=== PATIENT | female | born 1975 | race Hispanic/Latino ===

== ENCOUNTER 2016-08-10 13:53 | Observation (INO) | payer BC ==
[2016-08-10 13:53] VITALS: BMI 52.9
[2016-08-10] MEDS ORDERED: Sodium Chloride 0.9% 1,000 ML IV STA ×2 (14:27→17:41)
[2016-08-10 14:40] LABS: BASO # 0.1 K/uL (0.0-0.2); BASO % 0.7 % (0.0-2.0); EOS # 0.2 K/uL (0.0-0.7); EOS % 1.5 % (0.0-4.0); HEMATOCRIT 32.6 % (34.0-47.0); LYMPH # 5.9 K/uL (1.0-4.3); MEAN CORPUSCULAR HEMOGLOBIN 21.9 pg (27.0-31.0); MEAN CORPUSCULAR HGB CONC 30.8 g/dL (33.0-37.0); MEAN PLATELET VOLUME 7.5 fl (7.2-11.7); MONO # 1.5 K/uL (0.0-0.8); MONO % 8.8 % (0.0-10.0); NEUT # 9.1 K/uL (1.8-7.0); RED CELL DISTRIBUTION WIDTH 18.6 % (11.5-14.5); WHITE BLOOD COUNT 16.9 K/uL (4.8-10.8)
--- NOTE | 2016-08-10 14:52 | ED PDOC ---
HPI: General Adult Time Seen by Provider: 08/10/16 14:06 Chief Complaint (Nursing): Dizziness/Lightheaded Chief Complaint (Provider): Dizziness/Lightheaded History Per: Patient History/Exam Limitations: no limitations Onset/Duration Of Symptoms: Hrs Have you had recent travel within the past 21 days to any of the following countries: [place], [place], [place] or [place]?: No Current Symptoms Are (Timing): Still Present Severity: Moderate Additional Complaint(s): Patient is a 40 year old female with a history of migraines, presents to ED for sudden onset with double vision, nausea and vomiting immediately after stepping outside. Patient reports similar symptoms in the past with spontaneous resolution. Denies headache, head injury, numbness, weakness or tingling. NIHSS Stroke Scale - Date/Time Evaluation Performed Date Performed: 08/10/16 When Was NIHSS Performed: Baseline - How Severe is the Stroke Level of Consciousness: 0=Alert LOC to Questions: 0=Both comments correct LOC to commands: 0=Obeys both correctly Best Gaze: 0=Normal Visual: 0=No visual loss Facial: 0=Normal Motor Arm - Left: 0=No drift Motor Arm - Right: 0=No drift Motor Leg - Left: 0=No drift Motor Leg - Right: 0=No drift Limb Ataxia: 0=Absent Sensory: 0=Normal Best Language: 0=No aphasia Dysarthia: 0=Normal articulation Extinction & Inattention (Neglect): 0=Normal, no object Score: 0 rTPA Inclusion/Exclusion - Refusal of Treatment Patient Refused Treatment: No - Inclusion Criteria for Altepase Patient is 18 years or Older: Yes The Clinical Diagnosis of Ischemic Stroke That is Causing a Potentially Disabling Neurological Deficit: No Time of Onset is Well Established to be Less Than 270 Minute Before Treatment Would Begin: No Risk/Benefit Discussed With Patient/Family Member Present: No Past Medical History Reviewed: Historical Data, Nursing Documentation, Vital Signs Vital Signs: Last Vital Signs Temp 98.5 F 08/11/16 07:59 Pulse 96 H 08/11/16 07:59 Resp 20 08/11/16 07:59 BP 112/72 08/11/16 07:59 Pulse Ox 97 08/11/16 07:59 - Medical History PMH: Anxiety, Bipolar Disorder, Bronchitis, Depression, HTN, Migraine Denies: HIV, Chronic Kidney Disease - Surgical History Surgical History: No Surg Hx - Family History Family History: States: No Known Family Hx - Living Arrangements Living Arrangements: With Family - Home Medications Home Medications: Ambulatory Orders Medication Instructions Recorded Famotidine [Pepcid] 20 mg PO BID #0 tab 10/17/14 ALPRAZolam [Xanax] 1 tab PO TID PRN 08/10/16 ARIPiprazole [Abilify] 5 mg PO DAILY 08/10/16 Lamotrigine [Lamictal Xr] 300 mg PO BID 08/10/16 QUEtiapine [SEROquel] 200 mg PO HS 08/10/16 Aspirin [Ecotrin] 81 mg PO DAILY #30 tabec 08/11/16 Magnesium Oxide [Magnesium] 400 mg PO BID #60 capsule 08/11/16 Meclizine [Antivert] 25 mg PO Q6 PRN #15 tab 08/11/16 - Allergies Allergies/Adverse Reactions: Allergies Allergy/AdvReac Type Severity Reaction Status Date / Time metoclopramide HCl Allergy RASH Verified 07/16/15 15:17 [From [facility]] Review of Systems ROS Statement: Except As Marked, All Systems Reviewed And Found Negative Constitutional: Negative for: Weakness Eyes: Positive for: Vision Change Cardiovascular: Negative for: Chest Pain, Palpitations Respiratory: Negative for: Shortness of Breath Gastrointestinal: Positive for: Nausea, Vomiting. Negative for: Abdominal Pain Musculoskeletal: Negative for: Neck Pain Skin: Negative for: Rash Neurological: Negative for: Weakness, Numbness, Headache, Dizziness Physical Exam - Reviewed Nursing Documentation Reviewed: Yes Vital Signs Reviewed: Yes - Physical Exam Appears: Positive for: In Acute Distress (moderate gastrointestinal distress ) Head Exam: Positive for: ATRAUMATIC, NORMAL INSPECTION Skin: Positive for: Normal Color, Warm Eye Exam: Positive for: Normal appearance ((+) double vision with bilateral open eyes ), EOMI, PERRL Neck: Positive for: Normal, Painless ROM Cardiovascular/Chest: Positive for: Regular Rate, Rhythm. Negative for: Murmur Respiratory: Positive for: Normal Breath Sounds. Negative for: Respiratory Distress Gastrointestinal/Abdominal: Positive for: Normal Exam (Actively vomiting ). Negative for: Tenderness, Distended Back: Positive for: Normal Inspection Extremity: Positive for: Normal ROM. Negative for: Pedal Edema, Calf Tenderness Neurologic/Psych: Positive for: Alert, Oriented - Laboratory Results Result Diagrams: 08/11/16 05:45 08/11/16 05:45 - ECG O2 Sat by Pulse Oximetry: 100 (RA) Pulse Ox Interpretation: Normal - CT Scan/US CT head Other Rad Studies (CT/US): Radiology Report Reviewed (No evidence of acute intracranial hemorrhage territorial infarct mass effect or midline shift. If clinically warranted further assessment by MRI may be obtained.) - Physician Consult Information Time Consulting Physican Contacted: 17:00 Physician Contacted: Jose Clark Outcome Of Conversation: Recommends, Decadron 10 mg IV, Depakote 500 mg IV and MgSO4 2 g IV, Zofran prn. Medical Decision Making Medical Decision Making: Time: 1420 Initial impression: Migraine Initial plan: -- CT-head -- CMP -- Urine preg -- Urine dip -- CBC -- NSF and Zofran Scribe Attestation: Documented by Hortencia Patrick acting as a scribe for Ana Cristina Bautista MD MD Scribe Attestation: All medical record entries made by the Scribe were at my direction and personally dictated by me. I have reviewed the chart and agree that the record accurately reflects my personal performance of the history, physical exam, medical decision making, and the department course for this patient. I have also personally directed, reviewed, and agree with the discharge instructions and disposition. Disposition - Clinical Impression Clinical Impression: Diplopia, Migraine - Patient ED Disposition Is Patient to be Admitted: Yes - Disposition Disposition Time: 17:42 Condition: STABLE - Pt Status Changed To: Hospital Disposition Of: Inpatient - Admit Certification Admit to Inpatient:: After my assessment, the patient will require hospitalization for at least two midnights. This is because of the severity of symptoms shown, intensity of services needed, and/or the medical risk in this patient being treated as an outpatient. - POA Present On Arrival: None
[2016-08-10 14:55] LABS: ALB/GLOB RATIO 1.3 (1.0-2.1); ALKALINE PHOSPHATASE 91 U/L (38-126); ALT/SGPT 27 U/L (9-52); AST/SGOT 26 U/L (14-36); BILIRUBIN,TOTAL 0.5 mg/dl (0.2-1.3); BLOOD UREA NITROGEN 11 mg/dl (7-17); CALCIUM 9.5 mg/dL (8.4-10.2); CARBON DIOXIDE 24 mmol/L (22-30); CHLORIDE 100 mmol/L (98-107); GFR AFRICAN-AMERICAN > 60; GLUCOSE,RANDOM 153 mg/dL (65-105); POTASSIUM 3.9 MMOL/L (3.6-5.0); SODIUM 141 mmol/l (132-148); TOTAL PROTEIN 8.2 G/DL (6.3-8.2)
--- NOTE | 2016-08-10 15:34 | CT ---
PROCEDURE: CT HEAD WITHOUT CONTRAST. HISTORY: Diplopia COMPARISON: None available. TECHNIQUE: Axial computed tomography images were obtained through the head/brain without intravenous contrast. Radiation dose: Total exam DLP = 861.11 mGy-cm. FINDINGS: HEMORRHAGE: No intracranial hemorrhage. BRAIN: No mass effect or edema. No atrophy or chronic microvascular ischemic changes. VENTRICLES: Unremarkable. No hydrocephalus. CALVARIUM: Unremarkable. PARANASAL SINUSES: Unremarkable as visualized. No significant inflammatory changes. MASTOID AIR CELLS: Unremarkable as visualized. No inflammatory changes. OTHER FINDINGS: None. IMPRESSION: No evidence of acute intracranial hemorrhage territorial infarct mass effect or midline shift. If clinically warranted further assessment by MRI may be obtained.
[2016-08-10] MEDS ORDERED: Dexamethasone 10 MG in Sodium Chloride 0.9% 50 ML IV STA (17:02)
[2016-08-10] MEDS ORDERED: Valproate 500 MG in Sodium Chloride 0.9% 100 ML IVPB STA (17:10)
[2016-08-10 18:15] LABS: IRON < 10 ug/dL (37-170)
--- NOTE | 2016-08-10 20:09 | CP.PCM.HP ---
<Deshawn Anglin - Last Filed: 08/10/16 21:31> History of Present Illness - History of Present Illness History of Present Illness: 40 yo F w/ PMHx of Migraine, Gastric Sleeve Sx, Bipolar presented to ED with sudden onset of double vision and generalized weakness. Patient states has been having feelings of lightheadedness x 2 wks, that she attributes to having only one contact lens in place. Patient states also she would feel better after she ate. However, today was different and much worse. Patient states approx 2 hrs after waking up this morning (ate an orange and a banana) she began to have similar symptoms of dizziness/double vision/weakness. Patient states she went outside to get fresh air, sat on a bench and felt that she couldn't get up. Patient then states the next thing she remembers was attempting to go to the bathroom to urinate in the ED. Patient states employees that were with her described her as "out of it/unconscious" though no fall. Patient also remembers having trouble speaking during this episode. Denies urinary/bowel incontinence, headache, fever, recent illness, urinary symptoms, n/v/d/c/brbpr/m, or surrounding people with similar symptoms. PMD: Dr. Hermosillo PMHx: Migraine, Gastric Sleeve Sx, Bipolar Meds: Abilify 5mg qd, Seroquel 200mg HS, Xanax 1mg TID PRN, Lamictial XL 300mg BID Allergies: Reglan (dystonic rxn) Surgeries: Gastric Sleeve Sx (12/2014) Family hx: Mother HTN, Father alive and healthy Social hx: Lives in basement of parents home. Denies tobacco use. 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 EtOh occasionally, last drink 2 months ago. 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 ED Course: Vitals stable/unremarkable Labs remarkable for leukocytosis, thrombocytosis, microcytic anemia Urine preg/dip - negative/unremarkable IV Hydration CT head - No evidence of acute intracranial hemorrhage territorial infarct mass effect or midline shift. If clinically warranted further assessment by MRI may be obtained. Neurology consulted, Dr. Clark, Recommended Decadron 10 mg IV, Depakote 500 mg IV and MgSO4 2 g IV, Zofran prn. MRI ordered. 5 episodes of vomiting in ED as per patient, none prior to ED arrival Present on Admission - Present on Admission Any Indicators Present on Admission: No Review of Systems - Review of Systems All systems: reviewed and no additional remarkable complaints except (mentioned in HPI) Past Patient History - Past Medical History & Family History Past Medical History?: Yes - Past Social History Smoking Status: Never Smoked - CARDIAC Hx Hypertension: Yes - PULMONARY Hx Bronchitis: Yes - NEUROLOGICAL Hx Migraine: Yes - HEENT Hx HEENT Problems: No - RENAL Hx Chronic Kidney Disease: No - ENDOCRINE/METABOLIC Hx Endocrine Disorders: No - HEMATOLOGICAL/ONCOLOGICAL Hx Human Immunodeficiency Virus (HIV): No - INTEGUMENTARY Hx Cellulitis: Yes - MUSCULOSKELETAL/RHEUMATOLOGICAL Hx Falls: No - GASTROINTESTINAL Other/Comment: polyps - GENITOURINARY/GYNECOLOGICAL Hx Genitourinary Disorders: No - PSYCHIATRIC Hx Anxiety: Yes Hx Bipolar Disorder: Yes Hx Depression: Yes - SURGICAL HISTORY Other/Comment: rhinoplasty. "Fissure" - ANESTHESIA Hx Anesthesia: Yes Hx Anesthesia Reactions: Yes Hx Malignant Hyperthermia: No Meds Allergies/Adverse Reactions: Allergies Allergy/AdvReac Type Severity Reaction Status Date / Time metoclopramide HCl Allergy RASH Verified 07/16/15 15:17 [From Reglan] Physical Exam - Constitutional Appears: Non-toxic, No Acute Distress Additional comments: weak - Head Exam Head Exam: ATRAUMATIC, NORMAL INSPECTION, NORMOCEPHALIC - Eye Exam Eye Exam: EOMI Pupil Exam: PERRL Additional comments: bilateral ptosis - ENT Exam ENT Exam: Mucous Membranes Moist, Normal Exam Additional comments: unable to fully protrude tongue though no deviation appreciated - Neck Exam Neck exam: Positive for: Full Rom, Normal Inspection. Negative for: Meningismus , Tenderness - Respiratory Exam Respiratory Exam: Clear to Auscultation Bilateral, NORMAL BREATHING PATTERN. absent: Decreased Breath Sounds, Rales, Rhonchi, Wheezes - Cardiovascular Exam Cardiovascular Exam: REGULAR RHYTHM, RRR, +S1, +S2 - GI/Abdominal Exam GI & Abdominal Exam: Normal Bowel Sounds, Soft. absent: Distended, Firm, Tenderness - Extremities Exam Extremities exam: Positive for: normal inspection, pedal pulses present. Negative for: calf tenderness, pedal edema, tenderness - Back Exam Back exam: NORMAL INSPECTION - Neurological Exam Neurological exam: Alert, CN II-XII Intact, Oriented x3 - Expanded Neurological Exam Expanded Patient oriented to: person, place, time Cranial nerves: EOM's Intact: Normal, Tongue Deviation: Normal Ataxia: No Neuro motor strength exam: Left Upper Extremity: 4, Right Upper Extremity: 4, Left Lower Extremity: 4, Right Lower Extremity: 4 Coma Scale Eye Opening: SPONTANEOUS Coma Scale Motor Response: OBEYS COMMANDS Coma Scale Verbal: Oriented Coma Scale Total: 15 - Psychiatric Exam Psychiatric exam: Normal Affect, Normal Mood - Skin Skin Exam: Dry, Intact, Normal Color, Warm Results - Vital Signs Recent Vital Signs: Last Vital Signs Temp 98.3 F 08/10/16 13:54 Pulse 91 H 08/10/16 18:29 Resp 17 08/10/16 18:29 BP 134/66 08/10/16 19:40 Pulse Ox 100 08/10/16 19:16 - Labs Result Diagrams: 08/10/16 14:30 08/10/16 14:30 Labs: Laboratory Results - last 24 hr 08/10/16 08/10/16 17:45 17:46 Magnesium 2.2 Iron < 10 L TIBC 264 % Saturation < 4 L Assessment & Plan (1) Diplopia Status: Acute (2) Nausea & vomiting Status: Acute (3) Leukocytosis Status: Acute (4) Microcytic anemia Status: Acute (5) Thrombocytosis Status: Acute (6) DVT prophylaxis Status: Acute - Assessment and Plan (Free Text) Assessment: 40 yo F w/ PMHx of Migraine, Gastric Sleeve Sx, Bipolar presented to ED with sudden onset of double vision, generalized weakness, dysarythria, and vomiting. Plan: (1) Diplopia - Dysarthria, ptosis noted as well - CT head unremarkable - MRI pending - S/P Dexamethasone, Valproate, MgSo4 - Can consider MS, MG or LEMS, appropriate labs ordered follow up - Neurology consulted in ED, Dr. Clark, appreciate recommendations - Continue to monitor (2) Nausea & vomiting - Possibly secondary to diplopia - Zofran PRN n/v - Allergic to Reglan (dystonic rxn in past) - IV hydration - NPO (3) Leukocytosis - Afebrile - No obvious source of infection at this time - f/u CXR official read - few episodes noted in the past - Continue to monitor, CBC in AM - if febrile, obtain smallwood culture - Consider heme/onc input if worsens (4) Microcytic anemia - few episodes noted in the past - Retic noted to be elevated - No gross active bleeding, LMP 2 wks ago - Iron noted to be low - Continue to monitor, CBC in AM - Consider heme/onc input if worsens (5) Thrombocytosis - few episodes noted in the past - Continue to monitor, CBC in AM (6) Bipolar - Hold home meds at this time though verified with [facility] in [place] (7) DVT prophylaxis - SCDs for now <Frank Hermosillo - Last Filed: 08/12/16 07:04> Results - Vital Signs Recent Vital Signs: Last Vital Signs Temp 98.5 F 08/11/16 07:59 Pulse 96 H 08/11/16 07:59 Resp 20 08/11/16 07:59 BP 112/72 08/11/16 07:59 Pulse Ox 97 08/11/16 07:59 - Labs Result Diagrams: 08/11/16 05:45 08/11/16 05:45 Labs: Laboratory Results - last 24 hr 08/10/16 08/11/16 08/11/16 18:02 05:45 10:36 WBC 13.7 H RBC 4.48 Hgb 10.0 L Hct 31.8 L MCV 70.9 L MCH 22.4 L MCHC 31.6 L RDW 19.3 H Plt Count 504 H Hemoglobinopathy Red Blood Count 4.33 Hemoglobinopathy Hct 31.9 L Hemoglobinopathy Hgb 10.0 L Hemoglobinopathy MCV 73.7 L Hemoglobinopathy MCH 23.2 L Hemoglobinopathy RDW 19.6 H Sodium 145 Potassium 4.6 Chloride 107 Carbon Dioxide 24 Anion Gap 18 BUN 9 Creatinine 0.6 L Est GFR ( Amer) > 60 Est GFR (Non-Af Amer) > 60 Random Glucose 117 H Calcium 8.9 Ferritin 6.0 Total Bilirubin 0.3 AST 31 ALT 29 Alkaline Phosphatase 80 Total Protein 7.7 Albumin 4.3 Globulin 3.4 Albumin/Globulin Ratio 1.2 Vitamin B12 > 1000 H Folate > 20.0 RBC Folate 809 RPR Nonreactive Attending/Attestation - Attestation I have personally seen and examined this patient.: Yes I have fully participated in the care of the patient.: Yes I have reviewed all pertinent clinical information: Yes
[2016-08-10] MEDS ORDERED: Sodium Chloride 0.9% 1,000 ML IV SCH (20:30)
--- NOTE | 2016-08-11 07:13 | CARD ---
APPROVED REPORT EKG Measurement Heart [id number] <Conclusion> Normal sinus rhythm Normal ECG
[2016-08-11 08:00] VITALS: BP 112/72; PULSE 96; RESP 20; TEMP 98.5
[2016-08-11 08:00] LABS: HEMATOCRIT 31.8 % (34.0-47.0); MEAN CELL VOLUME 70.9 fl (81.0-99.0); MEAN CORPUSCULAR HEMOGLOBIN 22.4 pg (27.0-31.0); MEAN CORPUSCULAR HGB CONC 31.6 g/dL (33.0-37.0); RED CELL DISTRIBUTION WIDTH 19.3 % (11.5-14.5); WHITE BLOOD COUNT 13.7 K/uL (4.8-10.8)
[2016-08-11 08:17] LABS: ALB/GLOB RATIO 1.2 (1.0-2.1); ALKALINE PHOSPHATASE 80 U/L (38-126); ALT/SGPT 29 U/L (9-52); AST/SGOT 31 U/L (14-36); BILIRUBIN,TOTAL 0.3 mg/dl (0.2-1.3); BLOOD UREA NITROGEN 9 mg/dl (7-17); CALCIUM 8.9 mg/dL (8.4-10.2); CARBON DIOXIDE 24 mmol/L (22-30); CHLORIDE 107 mmol/L (98-107); GFR AFRICAN-AMERICAN > 60; GLUCOSE,RANDOM 117 mg/dL (65-105); POTASSIUM 4.6 MMOL/L (3.6-5.0); SODIUM 145 mmol/l (132-148); TOTAL PROTEIN 7.7 G/DL (6.3-8.2)
--- NOTE | 2016-08-11 09:05 | RAD ---
HISTORY: Admission COMPARISON: Comparison is made to the previous study dated 03/13/2015 FINDINGS: LUNGS: Mild pulmonary vascular congestion is noted. Prominent lung markings. Otherwise no interval change. PLEURA: No significant pleural effusion identified, no pneumothorax apparent. CARDIOVASCULAR: Normal. OSSEOUS STRUCTURES: No significant abnormalities. VISUALIZED UPPER ABDOMEN: Normal. OTHER FINDINGS: None. IMPRESSION: Suboptimal portable study. Mild pulmonary vascular congestion.
[2016-08-11] MEDS ORDERED: Gadodiamide 287 MG/ML VIAL (15ML) IV ONE (10:02)
--- NOTE | 2016-08-11 11:03 | CP.PCM.PN ---
Objective - Vital Signs/Intake and Output Vital Signs (last 24 hours): Temp Pulse Resp BP Pulse Ox 98.5 F 96 H 20 112/72 97 08/11/16 07:59 08/11/16 07:59 08/11/16 07:59 08/11/16 07:59 08/11/16 07:59 - Medications Medications: Current Medications Sodium Chloride (Sodium Chloride 0.9%) 1,000 mls @ 120 mls/hr IV .Q8H20M [facility] Last Admin: 08/11/16 04:56 Dose: Not Given Ondansetron HCl (Zofran Inj) 4 mg IVP Q6 PRN PRN Reason: Nausea/Vomiting Last Admin: 08/10/16 23:19 Dose: 4 mg - Labs Labs: 08/11/16 05:45 08/11/16 05:45
--- NOTE | 2016-08-11 13:26 | MRI ---
PROCEDURE: MRI BRAIN WITH AND WITHOUT CONTRAST HISTORY: Diplopia COMPARISON: Noncontrast head CT from 08/10/2016 TECHNIQUE: Multiplanar, multisequence MR images of the brain were obtained with and without intravenous contrast enhancement. FINDINGS: HEMORRHAGE: None DWI: No evidence of an acute or early subacute infarction. BRAIN PARENCHYMA: There is no mass, mass effect or abnormal extra axial fluid collection. Coker white matter differentiation is preserved. ENHANCEMENT: There is normal enhancement. VENTRICLES: There is mild global parenchymal volume loss advanced for the patient's age. CRANIUM: There is normal bone marrow signal pattern. ORBITS: Grossly unremarkable. PARANASAL SINUSES/MASTOIDS: Clear VASCULAR SYSTEM: There are normal signal voids in the major intracranial arteries. OTHER FINDINGS: None . IMPRESSION: No acute intracranial abnormality. Mild global parenchymal volume loss advanced for the patient's age.
--- NOTE | 2016-08-11 15:02 | CP.PCM.CON ---
History of Present Illness - History of Present Illness History of Present Illness: Ms. Greenberg is a 40-year-old woman with a past medical history of bipolar disorder, anxiety and migraine headaches, who presented to the ED after experiencing an episode of vertigo, nausea and vomiting of sudden onset. In the ED, her vital signs were stable. She received magnesium sulfate, decadron and depakote and now feels better. MRI of the brain was done and was normal. Review of Systems - Review of Systems All systems: reviewed and no additional remarkable complaints except - Constitutional Constitutional: As Per HPI - EENT Eyes: As Per HPI Ears: As Per HPI - Neurological Neurological: As Per HPI - Psychiatric Psychiatric: As Per HPI Past Patient History - Past Medical History & Family History Past Medical History?: Yes - Past Social History Smoking Status: Never Smoked - CARDIAC Hx Cardiac Disorders: Yes Hx Hypertension: Yes - PULMONARY Hx Respiratory Disorders: Yes Hx Bronchitis: Yes - NEUROLOGICAL Hx Neurological Disorder: Yes Hx Migraine: Yes - HEENT Hx HEENT Problems: No - RENAL Hx Chronic Kidney Disease: No - ENDOCRINE/METABOLIC Hx Endocrine Disorders: No - HEMATOLOGICAL/ONCOLOGICAL Hx Blood Disorders: No Hx Human Immunodeficiency Virus (HIV): No - INTEGUMENTARY Hx Dermatological Problems: Yes Hx Cellulitis: Yes - MUSCULOSKELETAL/RHEUMATOLOGICAL Hx Musculoskeletal Disorders: No Hx Falls: No - GASTROINTESTINAL Hx Gastrointestinal Disorders: Yes Other/Comment: polyps - GENITOURINARY/GYNECOLOGICAL Hx Genitourinary Disorders: No - PSYCHIATRIC Hx Psychophysiologic Disorder: Yes Hx Anxiety: Yes Hx Bipolar Disorder: Yes Hx Depression: Yes - SURGICAL HISTORY Hx Surgeries: Yes Other/Comment: rhinoplasty "Fissure", "Bariatric", "Labia sx" - ANESTHESIA Hx Anesthesia: Yes Hx Anesthesia Reactions: Yes Hx Malignant Hyperthermia: No Meds Allergies/Adverse Reactions: Allergies Allergy/AdvReac Type Severity Reaction Status Date / Time metoclopramide HCl Allergy RASH Verified 07/16/15 15:17 [From Reglan] - Medications Medications: Current Medications Sodium Chloride (Sodium Chloride 0.9%) 1,000 mls @ 120 mls/hr IV .Q8H20M [facility] Last Admin: 08/11/16 04:56 Dose: Not Given Ondansetron HCl (Zofran Inj) 4 mg IVP Q6 PRN PRN Reason: Nausea/Vomiting Last Admin: 08/10/16 23:19 Dose: 4 mg Physical Exam - Constitutional Appears: Well - Head Exam Head Exam: ATRAUMATIC, NORMAL INSPECTION, NORMOCEPHALIC - Eye Exam Eye Exam: EOMI, Normal appearance, PERRL - ENT Exam ENT Exam: Mucous Membranes Moist, Normal Exam - GI/Abdominal Exam GI & Abdominal Exam: Normal Bowel Sounds, Soft. absent: Tenderness - Neurological Exam Neurological exam: Alert, CN II-XII Intact, Normal Gait, Oriented x3, Reflexes Normal Additional comments: Complained of some dizziness on left lateral gaze. - Expanded Neurological Exam Expanded Patient oriented to: person, place, time Cranial nerves: EOM's Intact: Normal, Facial Palsey w/Forehead Movement: Normal , Facial Palsey w/o Forehead Movement: Normal, Facial Sensation: Normal, Gag Reflex: Normal, Nystagmus: Normal Cerebellar Function: Finger to Nose: Normal, Heel to Amaya: Normal, Romberg: Normal Upper motor neuron: Babinski Sign: Normal, Chevy Neglect: Normal, Pronator Drift : Normal, Sensory Extinction: Normal Sensory exam: Lower Extremity 2 Point Discrimination: Normal, Lower Extremity Light Touch: Normal, Lower Extremity Pin Prick: Normal, Lower Extremity Temperature: Normal, Upper Extremity 2 Point Discrimination: Normal, Upper Extremity Light Touch: Normal, Upper Extremity Pin Prick: Normal Neuro motor strength exam: Left Upper Extremity: 5, Right Upper Extremity: 5, Left Lower Extremity: 5, Right Lower Extremity: 5 DTR: Achilles Tendon Left: 2+, Achilles Tendon Right: 2+, Bicep Left: 2+, Bicep Right: 2+, Brachioradialis Left: 2+, Brachioradialis Right: 2+, Patellar Left: 2 +, Patellar Right: 2+, Tricep Left: 2+, Tricep Right: 2+ Results - Vital Signs Recent Vital Signs: Last Vital Signs Temp 98.5 F 08/11/16 07:59 Pulse 96 H 08/11/16 07:59 Resp 20 08/11/16 07:59 BP 112/72 08/11/16 07:59 Pulse Ox 97 08/11/16 07:59 - Labs Result Diagrams: 08/11/16 05:45 08/11/16 05:45 Labs: Laboratory Results - last 24 hr 08/10/16 08/10/16 08/11/16 17:45 17:46 05:45 WBC 13.7 H RBC 4.48 Hgb 10.0 L Hct 31.8 L MCV 70.9 L MCH 22.4 L MCHC 31.6 L RDW 19.3 H Plt Count 504 H Sodium 145 Potassium 4.6 Chloride 107 Carbon Dioxide 24 Anion Gap 18 BUN 9 Creatinine 0.6 L Est GFR ( Amer) > 60 Est GFR (Non-Af Amer) > 60 Random Glucose 117 H Calcium 8.9 Magnesium 2.2 Iron < 10 L TIBC 264 % Saturation < 4 L Ferritin 6.0 Total Bilirubin 0.3 AST 31 ALT 29 Alkaline Phosphatase 80 Total Protein 7.7 Albumin 4.3 Globulin 3.4 Albumin/Globulin Ratio 1.2 Vitamin B12 08/11/16 10:36 WBC RBC Hgb Hct MCV MCH MCHC RDW Plt Count Sodium Potassium Chloride Carbon Dioxide Anion Gap BUN Creatinine Est GFR ( Amer) Est GFR (Non-Af Amer) Random Glucose Calcium Magnesium Iron TIBC % Saturation Ferritin Total Bilirubin AST ALT Alkaline Phosphatase Total Protein Albumin Globulin Albumin/Globulin Ratio Vitamin B12 > 1000 H - Imaging and Cardiology MRI - head Status: Image reviewed by me (Essentially normal MRI of the brain) Assessment & Plan (1) Vestibular migraine Status: Acute Priority: Medium Comment: Improved with decadron, depakote and magnesium sulfate. Will continue magnesium oxide at 400 mg BID and start aspirin 81 mg daily.
--- NOTE | 2016-08-11 16:17 | CP.PCM.DIS ---
<Tasia Ortega - Last Filed: 08/11/16 17:34> Provider - Provider Date of Admission: 08/10/16 17:42 Attending physician: Frank Hermosillo MD Primary care physician: Frank Hermosillo MD Time Spent in preparation of Discharge (in minutes): 30 Diagnosis - Discharge Diagnosis (1) Vestibular migraine Status: Acute Priority: Medium Hospital Course - Lab Results Lab Results: Most Recent Lab Values WBC 13.7 K/uL (4.8-10.8) H 08/11/16 05:45 RBC 4.48 Mil/uL (3.80-5.20) 08/11/16 05:45 Hgb 10.0 g/dL (12.0-16.0) L 08/11/16 05:45 Hct 31.8 % (34.0-47.0) L 08/11/16 05:45 MCV 70.9 fl (81.0-99.0) L 08/11/16 05:45 MCH 22.4 pg (27.0-31.0) L 08/11/16 05:45 MCHC 31.6 g/dL (33.0-37.0) L 08/11/16 05:45 RDW 19.3 % (11.5-14.5) H 08/11/16 05:45 Plt Count 504 K/uL (130-400) H 08/11/16 05:45 MPV 7.5 fl (7.2-11.7) 08/10/16 14:30 Neut % (Auto) 54.0 % (50.0-75.0) 08/10/16 14:30 Lymph % (Auto) 35.0 % (20.0-40.0) 08/10/16 14:30 [place] % (Auto) 8.8 % (0.0-10.0) 08/10/16 14:30 Eos % (Auto) 1.5 % (0.0-4.0) 08/10/16 14:30 Baso % (Auto) 0.7 % (0.0-2.0) 08/10/16 14:30 Neut # 9.1 K/uL (1.8-7.0) H 08/10/16 14:30 Lymph # 5.9 K/uL (1.0-4.3) H 08/10/16 14:30 [place] # 1.5 K/uL (0.0-0.8) H 08/10/16 14:30 Eos # 0.2 K/uL (0.0-0.7) 08/10/16 14:30 Baso # 0.1 K/uL (0.0-0.2) 08/10/16 14:30 Retic Count 2.0 % (0.5-1.5) H 08/10/16 17:22 Sodium 145 mmol/l (132-148) 08/11/16 05:45 Potassium 4.6 MMOL/L (3.6-5.0) 08/11/16 05:45 Chloride 107 mmol/L (98-107) 08/11/16 05:45 Carbon Dioxide 24 mmol/L (22-30) 08/11/16 05:45 Anion Gap 18 (10-20) 08/11/16 05:45 BUN 9 mg/dl (7-17) 08/11/16 05:45 Creatinine 0.6 mg/dL (0.7-1.2) L 08/11/16 05:45 Est GFR ( Amer) > 60 08/11/16 05:45 Est GFR (Non-Af Amer) > 60 08/11/16 05:45 Random Glucose 117 mg/dL (65-105) H 08/11/16 05:45 Calcium 8.9 mg/dL (8.4-10.2) 08/11/16 05:45 Magnesium 2.2 MG/DL (1.6-2.3) 08/10/16 17:46 Iron < 10 ug/dL (37-170) L 08/10/16 17:45 TIBC 264 ug/dL (250-450) 08/10/16 17:45 % Saturation < 4 % (20-55) L 08/10/16 17:45 Ferritin 6.0 ng/mL 08/11/16 05:45 Total Bilirubin 0.3 mg/dl (0.2-1.3) 08/11/16 05:45 AST 31 U/L (14-36) 08/11/16 05:45 ALT 29 U/L (9-52) 08/11/16 05:45 Alkaline Phosphatase 80 U/L (38-126) 08/11/16 05:45 Total Protein 7.7 G/DL (6.3-8.2) 08/11/16 05:45 Albumin 4.3 g/dL (3.5-5.0) 08/11/16 05:45 Globulin 3.4 gm/dL (2.2-3.9) 08/11/16 05:45 Albumin/Globulin Ratio 1.2 (1.0-2.1) 08/11/16 05:45 Vitamin B12 > 1000 pg/mL (239-931) H 08/11/16 10:36 - Hospital Course Hospital Course: - PT w/ history of Migraine, Gastric Sleeve Sx, Bipolar presented w/ sudden onset of double vision and generalized weakness. Pt also had 5 episode of vomiting in the ED, none prior to arrival. She was thoroughly worked up: Vitals stable/unremarkable Urine preg/dip - negative/unremarkable IV Hydration CT head - No evidence of acute intracranial hemorrhage territorial infarct mass effect or midline shift. If clinically warranted further assessment by MRI may be obtained. Neurology consulted, Dr. Clark, Recommended Decadron 10 mg IV, Depakote 500 mg IV and MgSO4 2 g IV, Zofran prn.: After treatment patient appeared to be doing much better. MRI: Mild global parenchymal volume loss. No acute intracranial abnormalities. - PT has been cleared by Neurology: Has been advised to continue w/ Magnesium Oxide 400mg BID and Asprin 81 mg daily. - Pt is feeling much better after decadron, depakote and magnesium sulfate. Discharge Exam - Head Exam Head Exam: ATRAUMATIC, NORMAL INSPECTION, NORMOCEPHALIC - Eye Exam Eye Exam: Normal appearance - ENT Exam ENT Exam: Mucous Membranes Moist - Respiratory Exam Respiratory Exam: NORMAL BREATHING PATTERN. absent: Rales, Rhonchi, Wheezes - Cardiovascular Exam Cardiovascular Exam: REGULAR RHYTHM, +S1, +S2 - GI/Abdominal Exam GI & Abdominal Exam: Normal Bowel Sounds. absent: Tenderness - Neurological Exam Neurological exam: Alert, CN II-XII Intact, Oriented x3, Reflexes Normal Discharge Plan - Discharge Medications Prescriptions: Aspirin [Ecotrin] 81 mg PO DAILY #30 tabec Magnesium Oxide [Magnesium] 400 mg PO BID #60 capsule Meclizine [Antivert] 25 mg PO Q6 PRN #15 tab PRN Reason: Dizziness - Follow Up Plan Condition: STABLE Disposition: HOME/ ROUTINE Instructions: Diplopia (DC) Additional Instructions: - Patient is doing much better. Symptoms have resolved with the medical treatment. - Ambulatory orders: Abilify 5mg PO daily Lamotrigine 300 mg PO BID Seroquel 200 mg PO HS Xanex: 1 tab PO TID PRN Asprin: 81mg PO daily Magnesium Oxide: 400mg PO BID Meclizine: 25 mg PO Q6 PRN Pepcid: 20 mg PO BID - F/U w/ PMD within 1 week of d/c -If symptoms worsen return to the ER. - Referrals: Frank Hermosillo MD [Primary Care Provider] - <YuriAkhil Isra - Last Filed: 08/12/16 07:17> Provider - Provider Date of Admission: 08/10/16 17:42 Attending physician: Frank Hermosillo MD Primary care physician: Frank Hermosillo MD Hospital Course - Lab Results Lab Results: Most Recent Lab Values WBC 13.7 K/uL (4.8-10.8) H 08/11/16 05:45 RBC 4.48 Mil/uL (3.80-5.20) 08/11/16 05:45 Hgb 10.0 g/dL (12.0-16.0) L 08/11/16 05:45 Hct 31.8 % (34.0-47.0) L 08/11/16 05:45 MCV 70.9 fl (81.0-99.0) L 08/11/16 05:45 MCH 22.4 pg (27.0-31.0) L 08/11/16 05:45 MCHC 31.6 g/dL (33.0-37.0) L 08/11/16 05:45 RDW 19.3 % (11.5-14.5) H 08/11/16 05:45 Plt Count 504 K/uL (130-400) H 08/11/16 05:45 MPV 7.5 fl (7.2-11.7) 08/10/16 14:30 Neut % (Auto) 54.0 % (50.0-75.0) 08/10/16 14:30 Lymph % (Auto) 35.0 % (20.0-40.0) 08/10/16 14:30 [place] % (Auto) 8.8 % (0.0-10.0) 08/10/16 14:30 Eos % (Auto) 1.5 % (0.0-4.0) 08/10/16 14:30 Baso % (Auto) 0.7 % (0.0-2.0) 08/10/16 14:30 Neut # 9.1 K/uL (1.8-7.0) H 08/10/16 14:30 Lymph # 5.9 K/uL (1.0-4.3) H 08/10/16 14:30 [place] # 1.5 K/uL (0.0-0.8) H 08/10/16 14:30 Eos # 0.2 K/uL (0.0-0.7) 08/10/16 14:30 Baso # 0.1 K/uL (0.0-0.2) 08/10/16 14:30 Retic Count 2.0 % (0.5-1.5) H 08/10/16 17:22 Hemoglobinopathy Red Blood Count 4.33 Mill/mcL (3.80-5.10) 08/11/16 10:36 Hemoglobinopathy Hct 31.9 % (35.0-45.0) L 08/11/16 10:36 Hemoglobinopathy Hgb 10.0 g/dL (11.7-15.5) L 08/11/16 10:36 Hemoglobinopathy MCV 73.7 fL (80.0-100.0) L 08/11/16 10:36 Hemoglobinopathy MCH 23.2 pg (27.0-33.0) L 08/11/16 10:36 Hemoglobinopathy RDW 19.6 % (11.0-15.0) H 08/11/16 10:36 Sodium 145 mmol/l (132-148) 08/11/16 05:45 Potassium 4.6 MMOL/L (3.6-5.0) 08/11/16 05:45 Chloride 107 mmol/L (98-107) 08/11/16 05:45 Carbon Dioxide 24 mmol/L (22-30) 08/11/16 05:45 Anion Gap 18 (10-20) 08/11/16 05:45 BUN 9 mg/dl (7-17) 08/11/16 05:45 Creatinine 0.6 mg/dL (0.7-1.2) L 08/11/16 05:45 Est GFR ( Amer) > 60 08/11/16 05:45 Est GFR (Non-Af Amer) > 60 08/11/16 05:45 Random Glucose 117 mg/dL (65-105) H 08/11/16 05:45 Calcium 8.9 mg/dL (8.4-10.2) 08/11/16 05:45 Magnesium 2.2 MG/DL (1.6-2.3) 08/10/16 17:46 Iron < 10 ug/dL (37-170) L 08/10/16 17:45 TIBC 264 ug/dL (250-450) 08/10/16 17:45 % Saturation < 4 % (20-55) L 08/10/16 17:45 Ferritin 6.0 ng/mL 08/11/16 05:45 Total Bilirubin 0.3 mg/dl (0.2-1.3) 08/11/16 05:45 AST 31 U/L (14-36) 08/11/16 05:45 ALT 29 U/L (9-52) 08/11/16 05:45 Alkaline Phosphatase 80 U/L (38-126) 08/11/16 05:45 Total Protein 7.7 G/DL (6.3-8.2) 08/11/16 05:45 Albumin 4.3 g/dL (3.5-5.0) 08/11/16 05:45 Globulin 3.4 gm/dL (2.2-3.9) 08/11/16 05:45 Albumin/Globulin Ratio 1.2 (1.0-2.1) 08/11/16 05:45 Vitamin B12 > 1000 pg/mL (239-931) H 08/11/16 10:36 Folate > 20.0 ng/mL 08/11/16 10:36 RBC Folate 809 ng/mL RBC (>280) 08/10/16 18:02 RPR Nonreactive (NONREACTIVE) 08/11/16 10:36 Attending/Attestation - Attestation I have personally seen and examined this patient.: Yes I have fully participated in the care of the patient.: Yes I have reviewed all pertinent clinical information, including history, physical exam and plan: Yes
[2016-08-11 17:36] LABS: FOLATE > 20.0 ng/mL
[2016-08-12 01:44] LABS: HEMATOCRIT 31.9 % (35.0-45.0); RDW 19.6 % (11.0-15.0)
[2016-08-12 15:27] LABS: HEMOGLOBIN F <1.0 Percent (<2.0)
[2016-08-13 17:33] VITALS: O2SAT 100
== END 2016-08-11 18:27 | disposition home or self-care (01) ==
LOC: H.ER 13:53 → INTOOBSV 17:42 → H.ERHOLD 17:42 → H.MEDSURG1 23:11
PROVIDERS: ADMIT Family Medicine; ATTEND Family Medicine
DX: G43.809 Other migraine, not intractable, without status migrainosus (principal); F31.9 Bipolar disorder, unspecified; H53.2 Diplopia; D72.829 Elevated white blood cell count, unspecified; D50.9 Iron deficiency anemia, unspecified; D47.3 Essential (hemorrhagic) thrombocythemia; F41.9 Anxiety disorder, unspecified; I10 Essential (primary) hypertension; Z98.84 Bariatric surgery status; Z68.37 Body mass index [BMI] 37.0-37.9, adult
CPT/HCPCS: 36415; 70450; 70553; 71010; 80053; 80299; 81025; 82607; 82728; 82746; 82747; 83021; 83519; 83540; 83550; 83735; 85014; 85018; 85025; 85027; 85041; 85044; 86592; 92526; 92610; 93005; 96361; 96365; 96375; 99285; A9579; G0378; G8996; G8997; G8998; J1100; J2060; J2405; J7040

== ENCOUNTER 2018-04-28 06:33 | Emergency (ER) | payer BC, OTHER ==
[2018-04-28 06:33] VITALS: BMI 52.9
[2018-04-28 07:06] VITALS: O2SAT 100
--- NOTE | 2018-04-28 07:41 | ED PDOC ---
HPI: Trauma/Fall - HPI Time Seen by Provider: 04/28/18 07:02 Chief Complaint (Nursing): Abnormal Skin Integrity Chief Complaint (Provider): Abnormal Skin Integrity History Per: Patient History/Exam Limitations: no limitations Onset/Duration Of Symptoms: Days (x2) Additional Complaint(s): 42 year old female, with a past medical history of migraines and bipolar disorde r, presents to the ED after falling 2 days ago when going to work. Patient reports a worsening headache, abrasions on her left hand, left knee, nose, and upper lip, and vomiting x3 episodes last night. Patient reports she has been applying witch luis manuel and neosporin. She states the headache is not similar to prior migraines she has had. Patient is concerned she will have a panic attack which she takes xanax for. Denies nausea. Tetanus vaccination UTD. PMD: Dr. Hermosillo Past Medical History Reviewed: Historical Data, Nursing Documentation, Vital Signs Vital Signs: Last Vital Signs Temp 98 F 04/28/18 06:55 Pulse 85 04/28/18 06:55 Resp 17 04/28/18 06:55 BP 113/65 04/28/18 06:55 Pulse Ox 100 04/28/18 06:55 - Medical History PMH: Anxiety, Bipolar Disorder, Bronchitis, Depression, HTN, Migraine Denies: HIV, Chronic Kidney Disease - Surgical History Surgical History: No Surg Hx - Family History Family History: States: Unknown Family Hx - Social History Current smoker - smoking cessation education provided: No Alcohol: None Drugs: Denies - Home Medications Home Medications: Ambulatory Orders Medication Instructions Recorded Famotidine [Pepcid] 20 mg PO BID #0 tab 10/17/14 ALPRAZolam [Xanax] 1 tab PO TID PRN 08/10/16 ARIPiprazole [Abilify] 5 mg PO DAILY 08/10/16 Lamotrigine [Lamictal Xr] 300 mg PO BID 08/10/16 QUEtiapine [SEROquel] 200 mg PO HS 08/10/16 Aspirin [Ecotrin] 81 mg PO DAILY #30 tabec 08/11/16 Magnesium Oxide [Magnesium] 400 mg PO BID #60 capsule 08/11/16 Meclizine [Antivert] 25 mg PO Q6 PRN #15 tab 08/11/16 Mupirocin 2% Ointment [Bactroban 1 appl TP TID #1 tube 04/28/18 Ointment] - Allergies Allergies/Adverse Reactions: Allergies Allergy/AdvReac Type Severity Reaction Status Date / Time metoclopramide HCl Allergy RASH Verified 04/28/18 07:06 [From [facility]] Review of Systems ROS Statement: Except As Marked, All Systems Reviewed And Found Negative Gastrointestinal: Positive for: Vomiting. Negative for: Nausea Skin: Positive for: Other (Abrasions to left hand, left knee, nose, and upper lip) Neurological: Positive for: Headache Physical Exam - Reviewed Nursing Documentation Reviewed: Yes Vital Signs Reviewed: Yes - Physical Exam Appears: Positive for: Non-toxic, No Acute Distress Head Exam: Positive for: ATRAUMATIC, NORMOCEPHALIC Skin: Positive for: Normal Color, Warm, Dry Eye Exam: Positive for: Normal appearance ENT: Positive for: Normal ENT Inspection, TM Is/Are (normal), Other (Abrsaions to the nose and upper lip. Contusion on the inside of the upper lip. Healing laceration on the mucosal surface of the lower lip. ) Neck: Positive for: Normal, Painless ROM Cardiovascular/Chest: Positive for: Regular Rate, Rhythm Respiratory: Positive for: Normal Breath Sounds. Negative for: Wheezing, Respiratory Distress Extremity: Positive for: Normal ROM, Other (Abrasions to PIP joint of the 2nd, 3rd, and 4th joint on the left hand and left knee) Neurologic/Psych: Positive for: Alert, Oriented. Negative for: Motor/Sensory Deficits - ECG O2 Sat by Pulse Oximetry: 100 (RA) Pulse Ox Interpretation: Normal Medical Decision Making Medical Decision Making: Initial Plan: --CT scan Scribe Attestation: Documented by Xander Orr acting as a scribe for Shahida Pritchett MD. Provider Scribe Attestation: All medical record entries made by the Scribe were at my direction and personally dictated by me. I have reviewed the chart and agree that the record accurately reflects my personal performance of the history, physical exam, medical decision making, and the department course for this patient. I have also personally directed, reviewed, and agree with the discharge instructions and disposition. Disposition - Clinical Impression Clinical Impression: Abrasions of multiple sites, Head injury without concussion or intracranial hemorrhage - Patient ED Disposition Is Patient to be Admitted: No Doctor Will See Patient In The: Office Counseled Patient/Family Regarding: Diagnosis, Need For Followup, Rx Given - Disposition Referrals: Frank Hermosillo MD [Staff Provider] - Disposition: Routine/Home Disposition Time: 09:00 Condition: STABLE Prescriptions: Mupirocin 2% Ointment [Bactroban Ointment] 1 appl TP TID #1 tube Instructions: Minor Head Injury Forms: [facility] ([place]) - POA Present On Arrival: Falls Or Trauma
--- NOTE | 2018-04-28 08:50 | CT ---
Date of service: 04/28/2018 PROCEDURE: CT HEAD WITHOUT CONTRAST. HISTORY: fall 2 days ago; hit right side of head; vomit x3 COMPARISON: Noncontrast head CT 08/10/2016. TECHNIQUE: Axial computed tomography images were obtained through the head/brain without intravenous contrast. Radiation dose: Total exam DLP = 786.82 mGy-cm. This CT exam was performed using one or more of the following dose reduction techniques: Automated exposure control, adjustment of the mA and/or kV according to patient size, and/or use of iterative reconstruction technique. FINDINGS: HEMORRHAGE: No intracranial hemorrhage. BRAIN: Normal keith-white matter differentiation and density are appreciated throughout the cerebrum and cerebellum with the brainstem appearing unremarkable as well. There is no mass effect. There is no suspicious extra-axial fluid collection and the midline brain anatomy appears diffusely unremarkable. VENTRICLES: Unremarkable. No hydrocephalus. CALVARIUM: No destructive bony lesion or displaced fracture identified including through the skullbase. PARANASAL SINUSES: Unremarkable as visualized. No significant inflammatory changes. MASTOID AIR CELLS: Unremarkable as visualized. No inflammatory changes. OTHER FINDINGS: None. IMPRESSION: Unremarkable unenhanced CT of the Head. No suspicious interval findings compared to prior CT 08/10/2016.
[2018-04-28 09:29] VITALS: BP 118/66; PULSE 81; RESP 18; TEMP 98.3
== END 2018-04-28 09:22 | disposition home or self-care (01) ==
LOC: H.ER 06:33
DX: S09.90XA Unspecified injury of head, initial encounter (principal); S60.512A Abrasion of left hand, initial encounter; S80.212A Abrasion, left knee, initial encounter; S00.31XA Abrasion of nose, initial encounter; S00.511A Abrasion of lip, initial encounter; W19.XXXA Unspecified fall, initial encounter; I10 Essential (primary) hypertension; Z86.59 Personal history of other mental and behavioral disorders; Z79.82 Long term (current) use of aspirin